=== PATIENT | female | born 1975 | race Caucasian/White ===

== ENCOUNTER 2023-07-01 13:53 | Emergency (ER) | payer OTHER, SELFPAY ==
--- NOTE | ~2023-07-01 | XR_ITS ---
EXAMINATION: XR hand LT min 3V DATE: 07/01/2023 14:20 INDICATION: Left hand pain. Fall. TECHNIQUE: 3 views of left hand were obtained. COMPARISON: Left thumb radiograph 09/26/2019 FINDINGS: Bone alignment is normal. No fracture. There is mild osteoarthritis of first carpometacarpa l joint. IMPRESSION: 1. Mild osteoarthritis of first carpometacarpal joint. Reviewed, dictated and finalized at location A.
[2023-07-01 13:55] VITALS: BP 126/84; PULSE 75; RESP 16; TEMP 36.3; O2SAT 98
--- NOTE | 2023-07-01 14:45 | ED.UPPEXIN ---
HPI - Extremity Injury (Upper) General Chief Complaint: Extremity Injury, Upper Stated Complaint: left hand injury Time Seen by Provider: 07/01/23 14:00 Source: patient Mode of arrival: ambulatory Limitations: no limitations History of Present Illness HPI narrative: Patient is a 47 y/o female who presents to the ED with c/o left hand pain. Patient reports she tripped and fell on Sunday night and landed on her left hand. She sustained a small abrasion to the palm of her left hand. She complains of pain to the palm. She did also sustain a small abrasion to her left knee, but denies pain with this. She has been ambulatory without issue. She has not taken anything for pain today. Denies any numbness or tingling. Related Data Allergies Allergy/AdvReac Type Severity Reaction Status Date / Time Sulfa (Sulfonamide Allergy Mild RASH Verified 12/26/09 16:56 Antibiotics) Review of Systems Review of Systems: CONSTITUTIONAL: Denies fever, chills, or sweats. SKIN: See HPI. MUSCULOSKELETAL: See HPI. NEUROLOGIC: Denies headache, numbness, or weakness. All systems reviewed & are unremarkable except as noted in HPI and below Exam Narrative: GENERAL: Well appearing, well-nourished, non-toxic, in no acute distress. HEAD: Normocephalic, atraumatic. NECK: Supple. No adenopathy, no masses. RESPIRATORY: Airway patent, respirations nonlabored. CARDIOVASCULAR: Regular rate and rhythm without murmurs, rubs, or gallops. Radial pulses 2+ and equal bilaterally. MUSCULOSKELETAL: Moves all extremities. Mild tenderness to L hand palmar surface in hypothenar region. TTP extending into 5th metacarpal/finger. No significant swelling or bruising to palm. Small circular abrasion to hypothenar region. No active bleeding or drainage. No significant tenderness over distal radius/ulna. Sensation intact. Good capillary refill to fingers. Very minor superficial abrasion to left lateral knee, no tenderness. SKIN: Warm, dry, normal color. No rashes. NEURO: A&O X3. Speech clear. Cranial nerves II-XII grossly intact. Steady gait. No ataxic movements. PSYCHIATRIC: Appropriate mood and affect. Normal interaction. Course Vital Signs Vital signs: Vital Signs Temperature 97.4 F L 07/01/23 13:55 Pulse Rate 75 07/01/23 13:55 Respiratory Rate 16 07/01/23 13:55 Blood Pressure 126/84 07/01/23 13:55 Pulse Oximetry 98 07/01/23 13:55 Temperature 97.4 F L 07/01/23 13:55 Pulse Rate 75 07/01/23 13:55 Respiratory Rate 16 07/01/23 13:55 Blood Pressure 126/84 07/01/23 13:55 Pulse Oximetry 98 07/01/23 13:55 MDM - Extremity Injury (Upper) MDM Narrative Medical decision making narrative: Patient's injury is consistent with musculoskeletal etiology. No signs of neurologic or vascular compromise on physical examination. Compartments are soft without signs of compartment syndrome. XR L hand w/o osseous abnormality. Pain is consistent with hand sprain/contusion. Will apply Tonny bandage for support. No other injuries from the fall. Patient is felt to be stable for discharge home and further outpatient management and treatment. Discussed return precautions. Discharged in stable condition. Medical Records Attestation: I reviewed the patient's medical records. Imaging Data Attestation: I personally reviewed and interpreted this imaging study as follows: Radiologist's impression: ITS Impressions Hand X-Ray 07/01/23 14:22 IMPRESSION: 1. Mild osteoarthritis of first carpometacarpal joint. Discharge Plan Discharge Clinical Impression: Abrasion of skin of left hand Contusion of left hand Qualifiers: Encounter type: initial encounter Qualified Code(s): S60.222A - Contusion of left hand, initial encounter Patient Disposition: Home, Self-Care Condition: Stable Instructions: Antibiotic Form, Hand Sprain (ED), Abrasion (ED) Additional Instructions: Utilize Tonny bandage as needed for compression
== END 2023-07-01 15:33 | disposition home or self-care (01) ==
LOC: ANHED 15:24
PROVIDERS: Emergency Provider Physician Assistant
DX: S60.512A Abrasion of left hand, initial encounter (principal); S60.222A Contusion of left hand, initial encounter; M18.9 Osteoarthritis of first carpometacarpal joint, unspecified; W01.0XXA Fall on same level from slipping, tripping and stumbling without subsequent striking against object, initial encounter
CPT/HCPCS: 73130; 99283

== ENCOUNTER 2025-10-22 14:51 | Outpatient (CLI) | payer OTHER, SELFPAY ==
--- NOTE | ~2025-10-22 | US_ITS ---
EXAMINATION: US pelvic complete w TV, 10/22/2025 14:53 PHARMACY STUDENT HISTORY: D25.9 - Leiomyoma of uterus, unspecified Comparison: None Technique: [place]-scale and color Doppler images were obtained. Findings: Uterus: Uterus anteverted 10 x 5.2 x 5 cm, IUD in appropriate location within the uterine cavity. There are multiple fibroids identified the largest in the left uterine body 5.4 x 5.5 cm which appears partially submucosal. . Endometrium 5 mm. Right Ovary:Right ovary 1.9 x 2.9 x 2.3 cm, no adnexal mass, normal flow. Left Ovary: Left ovary 3.6 x 1.6 x 3.2 cm, no adnexal mass, normal flow. Free Fluid: None Impression: Fibroids detailed above one of which appears partially submucosal. Contrast- enhanced MRI recommended Reviewed, dictated and finalized at location P. [facility] STUDENT Impression: Fibroids detailed above one of which appears partially submucosal. Contrast-enh anced MRI recommended
== END 2025-10-22 14:52 | disposition home or self-care (01) ==
LOC: MICIMG 14:52
PROVIDERS: PCP Obstetrics & Gynecology; Visit Provider Obstetrics & Gynecology
DX: D25.9 Leiomyoma of uterus, unspecified (principal)
CPT/HCPCS: 76830; 76856